=== PATIENT | male | born 1965 | race Caucasian/White ===

== ENCOUNTER 2019-05-07 08:04 | Outpatient (CLI) | payer OTHER, SELFPAY | END 2019-05-07 08:05 | disposition home or self-care (01) | PROVIDERS: PCP Internal Medicine | DX: R42 Dizziness and giddiness (principal); H90.3 Sensorineural hearing loss, bilateral | CPT/HCPCS: 92537; 92540; 92546; 92557; 92567 ==

== ENCOUNTER 2019-05-07 10:04 | Outpatient (CLI) | payer OTHER, SELFPAY ==
[2019-05-07 13:14] LABS: Basophils Percent Auto 0.6 % (0.2-1.2); Eosinophils Absolute Auto 0.1 K/mm3 (0-0.3); Eosinophils Percent Auto 1.8 % (0-4.4); Hematocrit 42.1 % (42.0-52.0); Hemoglobin 14.2 g/dL (14.0-18.0); Immature Granulocyte Absolute 0.01 K/mm3 (0.00-0.031); Immature Granulocyte Percent A 0.3 % (0-0.5); Lymphocytes Absolute Auto 1.33 K/mm3 (0.9-3.2); Lymphocytes Percent Auto 40.5 % (18.3-44.2); Mean Corpuscular HGB Conc 33.7 g/dl (32-36); Mean Corpuscular Hemoglobin 30.7 pg (26-34); Mean Corpuscular Volume 91.1 fl (80-100); Mean Platelet Volume 12.2 fl (7.4-10.4); Monocytes Absolute Auto 0.6 K/mm3 (0.1-0.6); Monocytes Percent Auto 17.1 % (2.6-8.5); Neutrophils Absolute Auto 1.3 K/mm3 (1.3-6.7); Neutrophils Percent Auto 39.7 % (45.5-73.1); Platelet Count Result 189 k/mm3 (150-375); Red Blood Count 4.62 M/mm3 (4.6-6.20); Red Cell Distribution Width 12.2 % (11.5-14.5); White Blood Count 3.3 K/mm3 (4.5-10.0)
[2019-05-07 13:26] LABS: Alanine Aminotransferase 18 U/L (4-50); Albumin Level 4.3 g/dL (3.5-5.1); Alkaline Phosphatase 35 U/L (38-126); Aspartate Amino Transferase 28 U/L (17-59); Bilirubin,Total 1.6 mg/dL (0.2-1.3); Blood Urea Nitrogen 14 mg/dL (9-20); Calcium 9.2 mg/dL (8.4-10.2); Carbon Dioxide 27 mmol/L (22-30); Chloride 99 mmol/L (98-107); Cholesterol 200 mg/dL (0-200); Estimated Glomerular Filt Rate > 60; Glucose 83 mg/dL (75-110); HDL Direct 52 mg/dL; Potassium 4.8 mmol/L (3.4-5.0); Sodium 135 mmol/L (137-145); Triglycerides 39 mg/dL (<150)
[2019-05-07 13:37] LABS: LDL Cholesterol Direct 123 mg/dL
[2019-05-07 13:42] LABS: Free T4 Free Thyroxine 1.16 ng/mL (0.78-2.19)
[2019-05-07 14:00] LABS: Prostate Specific Antigen 0.5 ng/mL (< OR = 4.0)
[2019-05-11 18:04] LABS: Testosterone Free 104.3 pg/mL (35.0-155.0); Testosterone Total 660 ng/dL (250-1100)
== END 2019-05-07 10:05 | disposition home or self-care (01) ==
LOC: ANHWCLAB 10:07
PROVIDERS: PCP Internal Medicine; Visit Provider Internal Medicine
DX: R53.83 Other fatigue (principal); Z12.5 Encounter for screening for malignant neoplasm of prostate
CPT/HCPCS: 36415; 80053; 80061; 82607; 84153; 84402; 84403; 84439; 84443; 85025

== ENCOUNTER 2020-02-15 00:07 | Outpatient (CLI) | payer OTHER, SELFPAY ==
[2020-02-15 19:47] LABS: SARS-CoV-2 RNA PCR Negative
== END 2020-02-15 00:08 | disposition home or self-care (01) ==
LOC: ANHCOVIDDT 00:07
PROVIDERS: PCP Internal Medicine; Visit Provider Orthopaedic Surgery
DX: Z01.818 Encounter for other preprocedural examination (principal); Z20.828 Contact with and (suspected) exposure to other viral communicable diseases
CPT/HCPCS: 87635; C9803; U0003

== ENCOUNTER 2020-02-18 00:15 | Day surgery (SDC) | payer OTHER, SELFPAY ==
[2020-02-07 09:48] VITALS: BMI 23.7
--- NOTE | 2020-02-17 09:42 | P.PNAN_ITS ---
Anes - Initial Pre Proc Eval Procedure: Operation Date: 02/18/20 08:30 Proposed Procedures p Right Carpal Tunnel Release - Magan Rudd MD Date/Time: 02/17/20 09:42 Surgeon: Magan Rudd MD Pre Op Diagnosis: Right Carpal Tunnel Syndrome Patient Data Age: 54 Gender: M Height: 1.83 m Weight: 79.38 kg Allergies Allergy/AdvReac Type Severity Reaction Status Date / Time No Known Allergies Allergy Verified 02/18/20 06:51 Home Medications Medication Instructions Recorded Confirmed Type No Home Medications 01/14/20 02/18/20 History Patient hx anesthesia problems: none Family hx anesthesia problems: none [facility] Past Medical History Medical History (Updated 02/17/20 @ 09:42 by Abhinav Carmen MD) Back pain Carpal tunnel syndrome of left wrist (~2015) Osteoarthritis Family History Family History (Updated 01/14/20 @ 08:06 by Patience Cadena MA) Mother Arthritis Sibling Arthritis Social History Social History (Updated 01/14/20 @ 08:09 by Patience Cadena MA) Smoking status: Never smoker Alcohol intake: current Drinks per week: 6 Spiritual care concerns: No Anes - Eval Final PreProcedure Day of Procedure 02/17/20 09:42 Patient weight: normal Heart: regular rate and rhythm Lungs: clear to auscultation and normal air movement Airway: Mallampati scale class II Neurological: alert and oriented Last oral intake: >/= 8 hours ASA classification: II Emergent: no Anesthetic plan: proceed Anesthesia type and monitoring: general GIVS and LMA Informed Consent: The patient's anesthetic plan and its attendant risks and benefits were discussed with the patient/family/POA. Questions were solicited and answers provided to the satisfaction of the patient/family/POA.
[2020-02-18] MEDS: LACTATED RINGERS 1,000 ML 30 ML IV CONT (07:02)
[2020-02-18 07:03] VITALS: BMI 23.0
[2020-02-18 07:08] VITALS: BP 119/76; PULSE 66; RESP 16; TEMP 36.3; O2SAT 100
--- NOTE | 2020-02-18 07:16 | WPDHPUPDATE1 ---
History and Physical Update Update Date/Time: 02/18/20 07:16 History and Physical has been reviewed, including an updated exam of the patient. There are NO changes in the patient's condition. Risks, benefits, and alternatives have been discussed and questions answered. Patient agrees to proceed with procedure.
[2020-02-18 08:45] VITALS: BP 87/54; PULSE 52; RESP 16; O2SAT 98
--- NOTE | 2020-02-18 08:46 | PM.PROC ---
Procedure Note - Detailed Date of procedure: 02/18/20 Pre-op diagnosis: Right Carpal Tunnel Syndrome Right Carpal Tunnel Syndrome Post-op diagnosis: same Procedure performed: Carpal Tunnel Release Description of procedure: Significant inflammation noted. Anesthesia: MAC Surgeon: Magan Rudd MD Estimated blood loss (mL): 1 Tourniquet time (min): 7 Complications: None Condition: stable Disposition: same day Findings: Operative details. The hand was prepped and draped in the usual sterile fashion sedation anesthesia was given with propofol. The proposed incision was marked using typical anatomic landmarks. 4ML 0.5% Marcaine with epinephrine was injected along the incision line and at the distal forearm. The limb was exsanguinated and the tourniquet inflated to 250 millimeters of mercury. A longitudinal incision was taken sharply. Dissection was brought down to the transverse carpal ligament. Under direct vision the ligament was incised sharply. The proximal release was carried out with dissection scissors. The contents of the carpal canal were protected with a [place] elevator. The transverse carpal ligament was confirmed to be widely patent. The tourniquet was released. Hemostasis was obtained. The wound was closed with a horizontal mattress Prolene suture. A sterile bulky dressing was applied. The patient was brought to the recovery room in stable condition. There were no complications.
[2020-02-18 09:05] VITALS: BP 86/51; PULSE 48; RESP 16; O2SAT 98
[2020-02-18 09:25] VITALS: BP 92/62; PULSE 48; RESP 16; O2SAT 100
[2020-02-18 09:50] VITALS: BP 107/72; PULSE 49; RESP 16
== END 2020-02-18 09:56 | disposition home or self-care (01) ==
PROVIDERS: PCP Internal Medicine; Visit Provider Orthopaedic Surgery
PROC: (CPT 64721; principal; 2020-02-18 08:30)
DX: G56.01 Carpal tunnel syndrome, right upper limb (principal)
CPT/HCPCS: 64721; J2250; J2704; J3010; J7120

== ENCOUNTER → 2021-11-16 11:02 | Outpatient (CLI) | payer OTHER, SELFPAY ==
--- NOTE | ~2021-11-16 | XR_ITS ---
EXAMINATION: XR chest 2V DATE: 11/16/2021 11:56 INDICATION: Dyspnea. TECHNIQUE: Frontal and lateral views of the chest were obtained. COMPARISON: Chest single view 11/17/2011 FINDINGS: The chest demonstrates clear lungs without pneumonia, pleural effusion, or pneumothorax. Th e heart size is normal. IMPRESSION: 1. No acute cardiopulmonary disease. Reviewed, dictated and finalized at location A.
== END ==
PROVIDERS: PCP Internal Medicine; Visit Provider Internal Medicine
DX: R06.00 Dyspnea, unspecified (principal)
CPT/HCPCS: 71046

== ENCOUNTER → 2023-03-12 09:41 | Outpatient (CLI) | payer OTHER, SELFPAY ==
--- NOTE | ~2023-03-12 | MR_ITS ---
MRI of the brain Clinical History: Vertigo Technique: Axial and sagittal T1-weighted images were acquired. These were followed by axial T2-weigh aura, diffusion weighted, gradient, and FLAIR images. Thin cut coronal and axial T1-weighted and T2-we ighted images were performed through the internal auditory canals. Following intravenous administrati on of 17 cc MultiHance gadolinium, T1-weighted fat-sat imaging was performed through the brain in the axial and coronal planes. Thin cut T1-weighted postcontrast imaging was performed through the employee communications intern al auditory canals in the axial and coronal planes. Findings: No abnormal signal seen in the brain parenchyma. No acute infarct, intracranial hemorrhage, or mass lesion. Ventricles and subarachnoid spaces are unremarkable. Orbits are unremarkable. Paranasal sinuses and m astoid air cells are clear. Major intracranial flow voids are intact. Sagittal midline structures are intact. No mass lesion identified at the internal auditory canals or cerebellopontine angle regions. No abnormal postcontrast enhancement identified. IMPRESSION: Unremarkable exam. Reviewed, dictated and finalized at location M. UTER AIDED DESIGN OPERATOR IMPRESSION: Unremarkable exam.
== END ==
PROVIDERS: PCP Student in an Organized Health Care Education/Training Program; Visit Provider Student in an Organized Health Care Education/Training Program
DX: R42 Dizziness and giddiness (principal)
CPT/HCPCS: 70553; A9577

== ENCOUNTER 2023-05-30 08:53 | Outpatient (RCR) | payer OTHER, SELFPAY ==
--- NOTE | 2023-05-30 10:02 | OPREHPOC ---
Outpatient Therapy Plan of Care This is a Multidisciplinary Plan of Care that may contain components documented by all disciplines (PT, OT, and ST.) PT Problem 1 PT Problem #1 Knowledge Deficit PT Goal 1 Goal 1* pt indep with HEP 2* pt understand vestibular s/s PT Problem 2 PT Problem #2 Impaired Vestibular Syste PT Goal 1 Goal improve vestibular system, to improve mobility and activity tolerance: 1* self assessment Dizziness Handicap Index 20% limitation 2* pt report NO issues with driving 3* perform gaze stabilization with head motion up/ down x 20 reps in standing without s/s 4* pt demonstrate good eye tracking R/L between 2 items x 20 reps 5* pt demonstrate good eye tracking up/down between 2 items x 20 reps 6* further assess vestibular system as indicated
--- NOTE | 2023-05-30 10:02 | PTOPEVAL1 ---
Assessment and note entered by Meredith Dawson PT Evaluation Information Assessment Status Evaluation Diagnosis BPPV Onset September 2022 Subjective Information chronic issues with dizziness, Marya was so bad had to lie in bed and could not move; about 5 years off/on issues; never had therapy treatment for vertigo; had VNG; feel hearing is OK; have not had eyes checked in over 5 years; have reading glasses; Activity: computer work ~ 50% and up/moving other part of day; symptoms: getting up in dark during night; light headed, weird feeling in head; eyes out of focus; sinus pressure, sinus drainage, sometimes ears pop - like air plane; when happens, get really tired and sit down, can fall asleep; walking in the office, where carpet is wild and more print- issues walking increase: quick head motions R/L with driving; look up/down with putting trim on basement floor decrease: have taken meclazine when bad and it helps; stop, rest, take deep breath, get drink of water, outside and overheated; Testing: Shalini Hughes [place] to L: little funny, out of focus, no nystagmus Catherine Hughes [place] to R: little out of focus, no nystagmus Horizontal test to R and L: eyes out of focus, no nystagmus supine > sit no change in symptoms eye tracking: sitting x 10 reps: - eye tracking to R/L and up/down - gaze stabilization with head motion R/L- little focus, up/down more off focus - 2 items about 16 apart: -eye tracking with head still up/down and R/L- little out focus; slight decrease eye control with both - eye and head move R/L and up/down- little visual focus issues
--- NOTE | 2023-06-18 14:41 | PCPTNOTE ---
Pt canceled due to illness.
--- NOTE | 2023-09-24 08:51 | PCPTNOTE ---
PHYSICAL THERAPY DISCHARGE REPORT Mr. Celeste received the PT evaluation on May 30 and did not return for any further treatment. Discharge PT. The goals were not addressed.
== END 2023-08-25 11:34 | disposition home or self-care (01) ==
LOC: ANHPT 08:53
PROVIDERS: PCP Student in an Organized Health Care Education/Training Program
DX: H81.393 Other peripheral vertigo, bilateral (principal)
CPT/HCPCS: 97112; 97162; 97530